=== PATIENT | male | born 2000 | race African-American/Black ===

== ENCOUNTER 2024-03-08 13:04 | Outpatient (AMB) | payer OTHER, SELFPAY ==
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
[2024-03-08 13:24] VITALS: BMI 22.4
== END 2024-03-08 15:26 | disposition home or self-care (01) ==
PROVIDERS: PCP Pediatrics; Visit Provider Orthopaedic Surgery
DX: S54.00XA Injury of ulnar nerve at forearm level, unspecified arm, initial encounter (principal); R20.0 Anesthesia of skin; R20.2 Paresthesia of skin
CPT/HCPCS: 99204

== ENCOUNTER → 2024-03-08 13:04 | Outpatient (BNVA) | payer OTHER, SELFPAY | PROVIDERS: PCP Pediatrics; Visit Provider Orthopaedic Surgery | DX: R20.0 Anesthesia of skin (principal); R20.2 Paresthesia of skin; S54.01XA Injury of ulnar nerve at forearm level, right arm, initial encounter; S51.011A Laceration without foreign body of right elbow, initial encounter; X99.1XXA Assault by knife, initial encounter; Y93.9 Activity, unspecified; Y92.9 Unspecified place or not applicable; Y99.9 Unspecified external cause status | CPT/HCPCS: 99202 ==

== ENCOUNTER 2025-03-13 19:36 | Emergency (ER) | payer OTHER, SELFPAY ==
[2025-03-13 19:42] VITALS: BP 113/65; PULSE 67; RESP 16; TEMP 36.8; O2SAT 96; BMI 23.1
--- NOTE | 2025-03-13 19:42 | ED.GENADULT ---
HPI - General Adult General Chief complaint: Urogenital-Male Stated complaint: burning upon urination/discharge Related Data Home Medications ?Medication ?Instructions ?Recorded ?Confirmed No Known Home Meds 03/08/24 03/08/24 Allergies Allergy/AdvReac Type Severity Reaction Status Date / Time No Known Allergies Allergy Verified 03/13/25 19:43 [facility] Past Medical History Surgical History (Updated 03/08/24 @ 13:23 by PALOMO Walker) History of surgery on arm Social History Social History (Updated 03/08/24 @ 13:24 by PALOMO Walkre) Patient Tobacco Use Status: Never used Tobacco Advance Directives: No Advance Directives Information Provided: No Do you have a plan to hurt others: No Plan Current occupation: right hand dominant Physical Exam ED Vital Signs: BMI result Body Mass Index 23.1 Course Course Course Narrative: RME performed by Meenakshi Anderson PA-C. Patient is a 24 year old assigned male at presenting to the emergency department with STI exposure and burning when he urinates. Patient in no acute distress. Non-toxic appearing. Detailed physical exam and review of systems are deferred to the mental health unit lead psychologist. Patient placed back in the waiting room pending room availability. Patient left the department without completing treatment. Patient's limited physical exam performed in triage was unremarkable. Patient left the department before myself or any of the other emergency department clinicians could explain to or review with the patient; physical exam findings, test results, need or lack there of for additional testing, need or lack there of for a procedure to be performed, need or lack there of for hospital admission / transfer, need or lack there of for prescription medication, treatment options, or a treatment plan. Medical Decision Making Lab Data Labs: Lab Results 03/13/25 Range/Units 19:50 Urine Color Yellow Urine Appearance Clear Urine pH 6.5 (5.0-9.0) Ur Specific [place] 1.020 (1.005-1.025) Urine Protein Negative (Neg-Trace) mg/dL Urine Glucose (UA) Negative (Negative) mg/dL Urine Ketones Negative (Negative) mg/dL Urine Blood Negative (Negative) Urine Nitrite Negative (Negative) Ur Leukocyte Esterase Negative (Negative) Ur N gonorrhoeae DNA (PCR) NOT DETECTED (Not Detect.) Ur Chlamydia DNA (PCR) NOT DETECTED (Not Detect.) Discharge Plan Discharge Clinical Impression: Screen for STD (sexually transmitted disease) Patient Disposition: Left W/O Completing Treatment Prescriptions: No Action No Known Home Meds Discharge Date/Time: 03/13/25 22:16
[2025-03-13 19:57] LABS: Appearance Urine Clear; Color Urine Yellow; Glucose Urine UA Negative (Negative); Leukocyte Esterase Urine Negative (Negative); Nitrite Urine Negative (Negative); PH 6.5 (5.0-9.0); Urine Blood Negative (Negative); Urine Ketones Negative (Negative); Urine Protein Negative (Neg-Trace)
--- NOTE | 2025-03-13 22:04 | PC.NURSE ---
called in WR x1
[2025-03-14 01:37] LABS: CT PCR Urine NOT DETECTED (Not Detect.); NG PCR Urine NOT DETECTED (Not Detect.)
== END 2025-03-13 22:16 | disposition left against medical advice (07) ==
PROVIDERS: Physician Assistant Medical; Emergency Provider Emergency Medicine
DX: R30.0 Dysuria (principal); Z20.2 Contact with and (suspected) exposure to infections with a predominantly sexual mode of transmission
CPT/HCPCS: 36415; 81003; 87491; 87591; 99282; 99283

== ENCOUNTER → 2025-03-28 11:29 | Outpatient (BNVA) | payer OTHER, SELFPAY | PROVIDERS: Visit Provider Physician Assistant Medical | DX: S01.112A Laceration without foreign body of left eyelid and periocular area, initial encounter (principal); S00.511A Abrasion of lip, initial encounter; W22.8XXA Striking against or struck by other objects, initial encounter; R53.83 Other fatigue; R51.9 Headache, unspecified; Z23 Encounter for immunization | CPT/HCPCS: 12001; 90715; 99204 ==

== ENCOUNTER → 2025-03-31 15:22 | Outpatient (BNVA) | payer OTHER, SELFPAY | PROVIDERS: Visit Provider Physician Assistant Medical | DX: Z48.02 Encounter for removal of sutures (principal); S01.112A Laceration without foreign body of left eyelid and periocular area, initial encounter; W22.8XXA Striking against or struck by other objects, initial encounter; R51.9 Headache, unspecified | CPT/HCPCS: 99212; 99213 ==

== ENCOUNTER → 2025-04-04 07:51 | Outpatient (BNVA) | payer OTHER, SELFPAY | PROVIDERS: Visit Provider Physician Assistant Medical | DX: S01.112A Laceration without foreign body of left eyelid and periocular area, initial encounter (principal); W22.8XXA Striking against or struck by other objects, initial encounter; R51.9 Headache, unspecified; Z02.79 Encounter for issue of other medical certificate | CPT/HCPCS: 99213 ==